=== PATIENT | female | born 2000 | race Caucasian/White ===

== ENCOUNTER 2025-11-12 12:54 | Emergency (ER) | payer BC, SELFPAY ==
[2025-11-12 12:56] VITALS: BP 107/81
[2025-11-12 13:36] VITALS: BP 110/56
--- NOTE | 2025-11-12 13:58 | ED.GENMED ---
History of Present Illness
General
Chief Complaint: Breathing Problem
Source: patient
Exam Limitations: none
Time Seen by Provider: 11/12/25 13:40
History of Present Illness
History of Present Illness:
25yoF with a history of asthma, anxiety, and cyclic vomiting syndrome presenting for evaluation of shortness of breath. 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 She was on shift last night when she developed chest discomfort and shortness
of breath. A physician at the ED evaluated her and gave her a neb treatment for wheezing. She woke up in the middle of her sleep this morning feeling like she was gasping for air. She took additional neb treatments with some improvement in the
breathing although she continues to have chest tightness. She reports discomfort in the lower lobes of her lung. She also is nauseous and has vomited about 3 times. She had a low-grade temperature of 99 yesterday. She reports a history of an
esophageal tear last year due to an asthma exacerbation which was managed nonoperatively.
Phy Exam
Physical Exam
Physical Exam:
Appears anxious, non-toxic
General Physical Exam
General Presentation: well appearing
General Skin: warm and dry
General Habitus: normal
General Mental: alert
ENT Exam
ENT Exam: normocephalic
Cardiovascular Exam
Cardiovascular Exam: no edema and tachycardia
Pulmonary Exam
Pulmonary Exam: lungs clear, no respiratory distress, no rales, no crackles, no rhonchi and no wheezing
Gastrointestinal Exam
Gastrointestinal Exam: soft, non distended and other (Minor discomfort in epigastrium )
Neurological Exam
Neurological Exam: alert
[place] Coma Scale
Eye Opening: Spontaneous
Verbal Response: Oriented
Motor Response: Obeys Commands
GCS Total Score: 15
Skin Exam
Skin Exam: normal color and warm/dry
Psychiatric Exam
Psychiatric Exam: anxious
Course
Orders/Labs/Results
Orders:
Orders
11/12/25 13:01
CXR2 [CR Chest - 2 Views ] Urgent
Comment:
Reason For Exam: cough sob
11/12/25 13:56
0.9% Sodium Chloride 1000 ml [Nss] 1,000 ml IV BOLUS
Diphenhydramine [Benadryl] 25 mg IV NOW STA
Metoclopramide [Reglan] 10 mg IV NOW STA
11/12/25 13:57
Test Result ONCE
11/12/25 14:15
COVID-19 Antigen Urgent
Source: Nasal Swab
Complete Blood Count/With Diff Urgent
Comprehensive Metabolic Panel Urgent
D-Dimer Urgent
HCG, Serum Qualitative Screen Urgent
Lipase Urgent
Troponin I Urgent
Influenza A+B Rapid Molecular Urgent
KATIE Source: Nasal Swab
Specimen Description:
11/12/25 14:37
CT Chest PE Study Urgent
Comment:
Reason For Exam: SOB, elevated D-dimer
11/12/25 15:17
Potassium Chloride [KCl] 20 meq PO NOW STA
Abnormal Lab Results
11/12/25
14:15
RBC 3.77 L 10^6/uL
(4.20-5.40)
Hct 34.1 L %
(37.0-47.0)
MCH 31.8 H pg
(27.0-31.0)
Absolute Lymphs (auto) 0.4 L 10^3/uL
(1.2-3.4)
Neutrophils % 78.8 H %
(42.2-75.2)
Lymphocytes % 7.5 L %
(20.5-51.1)
Monocytes % 12.7 H %
(1.7-9.3)
D-Dimer 0.60 H ug/mlFEU
(0.00-0.50)
Sodium 134 L mmol/L
(135-145)
Potassium 3.4 L mmol/L
(3.5-5.1)
Carbon Dioxide 17 L mmol/L
(22-30)
Creatinine 0.5 L mg/dL
(0.6-1.0)
11/12/25 14:15
11/12/25 14:15
Vital Signs
Initial and Last Documented VS:
Initial Vital Signs
Temp Pulse Resp BP Pulse Ox
98.4 F 120 24 107/81 100
11/12/25 12:56 11/12/25 12:56 11/12/25 12:56 11/12/25 12:56 11/12/25 12:56
Last Documented Vital Signs
Temp Pulse Resp BP Pulse Ox
98.9 F 83 19 110/49 97
11/12/25 15:45 11/12/25 17:15 11/12/25 17:15 11/12/25 14:18 11/12/25 17:15
MDM/Problems Addressed
Differential Diagnosis Includes:
25yoF here with chest discomfort, SOB, vomiting x 1 day. Also had a low grade temp earlier although temp 98.4 in triage. Hx of asthma and she took 3 neb treatments at home. Lungs CTA without wheezing. Differential diagnosis includes: viral illness,
pneumonia, PE, asthma exacerbation, less likely ACS given age
Initial ED plan: CXR obtained in triage which appears normal. Check cardiac labs, D-dimer, COVID/flu swab, and EKG. IV Reglan/Benadryl and fluid bolus ordered for n/v.
*Pulse Oximetry
SaO2: 100
Oxygen Mode of Delivery: Room air
Patient hypoxic: no
*Critical Care Note
Total Time (30-74mins, 75-104mins- exclusive of procedures): Not Applicable
Update Note
Update Note:
Patient is positive for influenza A. D-dimer elevated and CTA chest subsequently ordered. CT is negative for pulmonary embolism and lungs are clear. Patient feeling improved on reassessment. No episodes of hypoxia throughout ED stay. Lung
sounds remain clear without wheezing and she does not feel that she needs any further albuterol. No indication for hospitalization. Supportive care discussed and prescription for albuterol nebulizer solution provided. Offered Tamiflu which
patient declines. Do not feel steroids are necessary as she has not required any neb treatments since arrival to the ED. Advised follow-up with PCP and ED return precautions reviewed. Patient discharged in stable condition.
ED Attending Note
-
Portions of this chart may have been created with voice recognition software.� Occasional wrong word or��sound alike� substitutions may have occurred due to the inherent limitations of voice recognition software.
Discharge Plan
Departure
Patient Disposition: Home (Routine Discharge)
Date of Disposition: 11/12/25
Time of Disposition: 16:44
Patient with high blood pressure during this ER visit?: No
Discharge Problem:
Influenza A
Instructions: Flu in adults - ED (DC)
Prescriptions:
New
albuterol sulfate 2.5 mg /3 mL (0.083 %) solution for nebulization
2.5 mg inhalation Q6H PRN (Reason: shortness of breath or wheezing) Qty: 90 0RF
Referrals:
Samm Singh, [Family Provider, Family Practice]
Stand Alone Forms: Return to Work
Activity Restrictions/Additional Instructions:
Drink plenty fluids and rest. Take Tylenol ibuprofen as needed for body aches and fevers. Continue using inhaler and nebulizer treatments for wheezing.
Please follow-up with your family doctor. Return to the ER with any new or worsening symptoms.
Interventions
Interventions:
*General Assessment Last Done: 11/12/25 14:18
*Neglect/Abuse Screening Last Done: 11/12/25 12:56
*ED COVID-19 Vaccine History Last Done: 11/12/25 12:56
*ED Influenza Vaccine History Last Done: 11/12/25 12:56
[facility] Risk Assessment Tool Last Done: 11/12/25 14:18
*Risk Screen - Suicide (C-SSRS) Last Done: 11/12/25 12:56
*Nursing Disposition Last Done: 11/12/25 17:22
ED- Cardiac Assessment Last Done: 11/12/25 16:07
ED- Pulmonary Assessment Last Done: 11/12/25 16:07
Discharge Date and Time
Discharge Date/Time: 11/12/25 17:23
Print Language: [id number]
[2025-11-12 14:00] VITALS: BP 110/49
[2025-11-12 14:17] VITALS: BMI 18.5
[2025-11-12 14:18] VITALS: BP 110/49
[2025-11-12 14:29] LABS: Hematocrit 34.1 % (37.0-47.0); Hemoglobin 12.0 g/dL (12.0-16.0); Mean Corp Hgb Conc. 35.2 g/dL (33.0-37.0); Mean Corpuscular Volume 90.5 fL (81.0-99.0); Nucleated Red Blood Cells % 0 %; Platelet Count 167 10^3/uL (130-400); Red Cell Dist. Width 11.8 % (11.5-14.5)
[2025-11-12 14:35] LABS: D-Dimer 0.60 ug/mlFEU (0.00-0.50)
[2025-11-12 14:42] LABS: HCG, Serum Qualitative Screen Negative
[2025-11-12 14:50] LABS: Troponin I < 0.012 ng/ml
[2025-11-12 14:51] LABS: ALT (SGPT) 12 U/L (0-35); AST (SGOT) 20 U/L (14-36); Albumin 4.7 g/dl (3.5-5.0); Alkaline Phosphatase 73 U/L (38-126); Blood Urea Nitrogen 8 mg/dl (7-17); Calcium 9.5 mg/dl (8.4-10.2); Carbon Dioxide 17 mmol/L (22-30); Chloride 106 mmol/L (98-107); Estimated Creatinine Clearance 101 ml/min; Glucose 97 mg/dl (70-99); Lipase 61 U/L (23-300); Potassium 3.4 mmol/L (3.5-5.1); Sodium 134 mmol/L (135-145); Total Protein 7.2 g/dl (6.3-8.2); eGFR > 60.00
[2025-11-12 14:53] LABS: COVID-19 Antigen Negative (Negative)
[2025-11-12] MEDS: BENADRYL 25 MG IV (14:57)
[2025-11-12] MEDS: REGLAN 10 MG IV (14:57)
[2025-11-12] MEDS: NSS 1000 IV (14:58)
[2025-11-12] MEDS: KCL 20 MEQ PO (16:38)
== END 2025-11-12 17:23 | disposition home or self-care (01) ==
LOC: EMR 12:54
PROVIDERS: Physician Assistant; EMERGENCY PHYSICIAN Emergency Medicine; FAMILY PHYSICIAN Family Medicine
DX: R06.02 Shortness of breath (principal); R07.89 Other chest pain; J10.2 Influenza due to other identified influenza virus with gastrointestinal manifestations; J10.1 Influenza due to other identified influenza virus with other respiratory manifestations; Z11.52 Encounter for screening for COVID-19; J45.909 Unspecified asthma, uncomplicated; F41.9 Anxiety disorder, unspecified; R11.15 Cyclical vomiting syndrome unrelated to migraine; Z88.1 Allergy status to other antibiotic agents; Z88.5 Allergy status to narcotic agent; Z88.0 Allergy status to penicillin
CPT/HCPCS: 99284; 96361; 96374; 96375; 71046; 71275; 80053; 83690; 84484; 84703; 85025; 85379; 87502; 87811; Q9967